=== PATIENT | female | born 1945 | race Caucasian/White ===

== ENCOUNTER → 2020-01-28 | Outpatient (CLI) | payer BC ==
[~2020-01-28] MED LIST: ALTACE5 M1 PO; ASPIRIN EC81 M1 PO; BETIMOL15 ML OP; BROMDAY1.7 ML OPHTHALMIC; CARVEDILOL6.25 MG PO; COUMADIN 2 MG TA2 M1; COUMADIN 5 MG TA5 M1; DARVOCET-N 1001 EACH PO; DIOVAN40 MG PO; HYDROCODON-ACE1 EAC8; HYDROCODONE-AP1 EAC6 PO; LIPITOR10 MG PO; LORATIDINE 10 M10 M1 PO; LOTEMAX5 ML OPHTHALMIC; MIRAPEX0.5 MG PO; NORCO 7.5-3251 EACH PO; NORVASC5 MG PO; PILOCARPINE 2% OPHTHALMIC; PRAMIPEXOLE DI0.5 MG PO; PREDNISONE 20 M20 M1 PO; ROBAXIN 750 MG750 M1 PO; TIMOLOL; XALATAN2.5 ML; ZANTAC 150MG T150 M1 PO; ZOFRAN4 MG PO
== END ==
LOC: SJCVCIMAG 08:44
PROVIDERS: ATTEND Internal Medicine
DX: I25.10 Atherosclerotic heart disease of native coronary artery without angina pectoris (principal); R00.0 Tachycardia, unspecified; I10 Essential (primary) hypertension; G47.33 Obstructive sleep apnea (adult) (pediatric)